=== PATIENT | female | born 1940 | race Caucasian/White ===

== ENCOUNTER 2017-01-05 09:48 | Emergency (ER) | payer MEDICARE, MEDICAID ==
[~2017-01-05] VITALS: Ht 167.6 cm; Wt 77.1 kg
--- NOTE | 2017-01-05 10:14 | Emergency Room Report ---
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 Clinical Suspician of Infection? Mental Status: Sepsis Risk: Have you (or family members/close friends) recently traveled outside the [place]? If Yes, where/when: Have you had exposure to infectious disease within the past month? TB? Other? Specify: Source patient, RN notes reviewed Exam Limitations no limitations Comment Pt is a 77 yo WF sent to the hospital today for a stress test. She has had a Pacemaker for the past 11 years and has been told she has a history of CHF. She has been having some Chest pain and sometimes breaks out with a sweat with the pain. She has a small amount of pain now bt is not diaphoretic. Her BP when she arrived for her stress test was 220 systolic and she was given her regular meds, Lisinopril 5 mg po, Carvedilol 12.5 mg po and Diltiazem ER 120 mg po in the Stress lab and on arrival in the ED her BP is still 204/89.. She is also a diabetic Cardiac Chest Pain Chest pain indicative of cardiac No Timing/Duration this morning ALLERGIES Coded Allergies: Penicillins (03/10/15) Sulfa (Sulfonamide Antibiotics) (03/10/15) codeine (03/10/15) ibuprofen (03/10/15) morphine (03/10/15) propoxyphene (03/10/15) Home Medications Active Scripts Albuterol Sulfate (Proair Hfa) 2 PUFFS IH QID PRN BREATHING #1 POW Ref 5 Prov: 04/03/14 Reported Medications Carvedilol (Carvedilol 6.25MG) 6.25 MG PO BID DILTIAZEM HCL (Diltiazem 24HR ER) 240 MG PO DAILY Lovastatin 40 MG PO QHS Omeprazole (Prilosec 20MG) 20 MG PO DAILY LISINOPRIL (Lisinopril) 20 MG PO DAILY Cholecalciferol (Vitamin D) 2,000 IUNITS PO DAILY BUDESONIDE/FORMOTEROL FUMARATE (Symbicort 80-4.5 Mcg Inhaler) 2 PUFFS IH BID #2 INH Baclofen 10 MG PO BIDP PRN MUSCLE SPASM METFORMIN HCL (Metformin) 850 MG PO BID Nitroglycerin (Nitrolingual [place]) 0.4 MG SL PRN PRN CHEST PAIN Polyethylene Glycol (Miralax Powder 255 Gm Bottle) 17 GM PO DAILY Fluticasone Propionate (Flonase 50 Mcg Nasal [place]) 1 SPRAY NA BID PRN ALLERGIES Loratadine (Loratadine 10MG Tablet) 10 MG PO DAILY History Medical History General CAD? Yes Angina: Yes [place]: Yes Hypertension? Yes Hyperlipidemia? Yes CHF? Yes COPD? Yes Asthma? Yes Hernia? Yes CVA? No Seizures? Yes Diabetes? Yes Insulin Dependent: No Insulin Pump: No Home FSBS? Yes End Stage Renal Disease? No UTI? No Stones? Yes GB Disease: Yes Nephritic Syndrome? No Asplenia? No Hepatitis? No Sickle Cell Disease? No Cataracts? Yes Glaucoma? No MRSA? No TB? No Cancer? No Immunization Hx DT/Tetanus Unknown Flu [id number] Flu Season Pneumonia Received In Past Surgical Hx Previous Surgery?Y GALLBLADDER HYSTERECTOMY COLON RESECTION HEMORRHOIDECTOMY L.BREAST BIOPSY R. ARM SURGERY A CHILD PACEMAKER INSERTION HERNIA REPAIR CATARACT REMOVAL BILATERA Family History Family Hx Diabetes Yes CAD No Hypertension Yes Hyperlipidemia No Cancer Yes TB No Social History Smoking Hx Packs/day N/A Alcohol Alcohol: No Review of Systems All Other Systems Reviewed and Negative Constitutional see HPI Cardiovascular see HPI Physical Exam Vital Signs Vital Signs Date Time Temp Pulse Resp B/P Pulse O2 O2 Flow FiO2 Ox Delivery Rate 01/05 1141 20 01/05 1135 71 20 185/90 93 01/05 1056 20 01/05 1025 71 20 188/88 94 01/05 0955 98.2 75 18 204/89 93 General Appearance normal appearance, WD/WN, no apparent distress Respiratory Status No: respiratory distress. Lung Sounds bilateral: normal breath sounds. Cardiovascular normal exam, regular rate/rhythm Neurologic alert, cnmt II-XII nml as tested, normal exam, no motor/sensory deficits Medical Decision Making LABS/Meds/Orders Pt receiving controlled substance in ED? No Results/Orders Laboratory Tests 01/05/17 1012: Sodium 137, Potassium 4.9, Chloride 102, Carbon Dioxide 31, BUN 20 H, Creatinine 1.1 H, Estimated Creat Clear 51, Estimated GFR (MDRD) 48 L, Glucose 144 H, Calcium 9.4, Total Bilirubin 0.4, AST 52 H, ALT 38, Alkaline Phosphatase 92, Creatine Kinase 80, CK-MB (CK-2) Rel Index 1.3, CK and CKMB Interp 1.0, Troponin I < 0.02, Total Protein 7.3, Albumin 3.7, Globulin 3.6 H, Albumin/Globulin Ratio 1.0 L, WBC 7.1, RBC 4.61, Hgb 13.1, Hct 41.2, MCV 89.4, RDW 12.1, Plt Count 233, MPV 8.2, Gran % 60.8, Gran # 4.3, Lymphocytes % 26.4, Monocytes % 5.6, Eosinophils % 5.8, Basophils % 1.4, Lymphocytes # 1.9, Monocytes # 0.4, Eosinophils # 0.4, Basophils # 0.1, PUBS MCHC 31.7 L, MCH 28.4 Current Medication Orders Sig/Sandro Start time Last Medication Dose Route Stop Time Status Admin Nitroglycerin 0 .STK-MED ONE 01/05 1048 DC SL Aspirin 0 .STK-MED ONE 01/05 1022 DCr .ROUTE Aspirin 324 MG ONCE ONE 01/05 1015 DCr 01/05 PO 01/05 1016 1023 Nitroglycerin 0.4 MG [id number] PRN 01/05 1015 AC 01/05 SL 1141 Sodium Chloride 10 ML PRN PRN 01/05 1000 AC IV 01/06 1000 Orders Procedure Date/time Status ELECTROCARDIOGRAM REQUEST 01/05 1002 Active IV SALINE LOCK 01/05 1002 Active CBC WITH AUTO DIFF 01/05 1002 Complete CARDIAC ENZYMES 01/05 1002 Complete CHEM 12 PROFILE 01/05 1002 Complete Departure Departure Time of Disposition 1215 Disposition DC Home or Self Care(routine) Clinical Impression Primary Impression: Accelerated hypertension Condition STABLE Referrals [facility] Patient Instructions DI for Malignant Hypertension, High Blood Pressure, Idiopathic Pulmonary Arterial Hypertension, Malignant Hypertension Additional Instructions TAke meds as directed. We discussed with the Stress Lab and they will do her stress test now that ZV=841/79 Discharge Counseling Counseled pt/family regarding diagnosis, test results, medications/RX, follow up needs ED Critical Care Critical Care No If Critical Care minutes are documented, the time involved in the performance of seperately reportable procedures was not counted toward critical care time documented. I directly delivered medical care to this critically ill and/or injured patient. Timely evaluation and treatment was necessary to address the significant organ system(s) dysfunction present in this patient. at 1213
--- NOTE | 2017-01-05 10:14 | Emergency Room Report ---
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 Clinical Suspician of Infection? Mental Status: Sepsis Risk: Have you (or family members/close friends) recently traveled outside the [place]? If Yes, where/when: Have you had exposure to infectious disease within the past month? TB? Other? Specify: Source patient, RN notes reviewed Exam Limitations no limitations Comment Pt is a 77 yo WF sent to the hospital today for a stress test. She has had a Pacemaker for the past 11 years and has been told she has a history of CHF. She has been having some Chest pain and sometimes breaks out with a sweat with the pain. She has a small amount of pain now bt is not diaphoretic. Her BP when she arrived for her stress test was 220 systolic and she was given her regular meds, Lisinopril 5 mg po, Carvedilol 12.5 mg po and Diltiazem ER 120 mg po in the Stress lab and on arrival in the ED her BP is still 204/89.. She is also a diabetic Cardiac Chest Pain Chest pain indicative of cardiac No Timing/Duration this morning ALLERGIES Coded Allergies: Penicillins (03/10/15) Sulfa (Sulfonamide Antibiotics) (03/10/15) codeine (03/10/15) ibuprofen (03/10/15) morphine (03/10/15) propoxyphene (03/10/15) Home Medications Active Scripts Albuterol Sulfate (Proair Hfa) 2 PUFFS IH QID PRN BREATHING #1 POW Ref 5 Prov: 04/03/14 Reported Medications Carvedilol (Carvedilol 6.25MG) 6.25 MG PO BID DILTIAZEM HCL (Diltiazem 24HR ER) 240 MG PO DAILY Lovastatin 40 MG PO QHS Omeprazole (Prilosec 20MG) 20 MG PO DAILY LISINOPRIL (Lisinopril) 20 MG PO DAILY Cholecalciferol (Vitamin D) 2,000 IUNITS PO DAILY BUDESONIDE/FORMOTEROL FUMARATE (Symbicort 80-4.5 Mcg Inhaler) 2 PUFFS IH BID #2 INH Baclofen 10 MG PO BIDP PRN MUSCLE SPASM METFORMIN HCL (Metformin) 850 MG PO BID Nitroglycerin (Nitrolingual [place]) 0.4 MG SL PRN PRN CHEST PAIN Polyethylene Glycol (Miralax Powder 255 Gm Bottle) 17 GM PO DAILY Fluticasone Propionate (Flonase 50 Mcg Nasal [place]) 1 SPRAY NA BID PRN ALLERGIES Loratadine (Loratadine 10MG Tablet) 10 MG PO DAILY History Medical History General CAD? Yes Angina: Yes [place]: Yes Hypertension? Yes Hyperlipidemia? Yes CHF? Yes COPD? Yes Asthma? Yes Hernia? Yes CVA? No Seizures? Yes Diabetes? Yes Insulin Dependent: No Insulin Pump: No Home FSBS? Yes End Stage Renal Disease? No UTI? No Stones? Yes GB Disease: Yes Nephritic Syndrome? No Asplenia? No Hepatitis? No Sickle Cell Disease? No Cataracts? Yes Glaucoma? No MRSA? No TB? No Cancer? No Immunization Hx DT/Tetanus Unknown Flu [id number] Flu Season Pneumonia Received In Past Surgical Hx Previous Surgery?Y GALLBLADDER HYSTERECTOMY COLON RESECTION HEMORRHOIDECTOMY L.BREAST BIOPSY R. ARM SURGERY A CHILD PACEMAKER INSERTION HERNIA REPAIR CATARACT REMOVAL BILATERA Family History Family Hx Diabetes Yes CAD No Hypertension Yes Hyperlipidemia No Cancer Yes TB No Social History Smoking Hx Packs/day N/A Alcohol Alcohol: No Review of Systems All Other Systems Reviewed and Negative Constitutional see HPI Cardiovascular see HPI Physical Exam Vital Signs Vital Signs Date Time Temp Pulse Resp B/P Pulse O2 O2 Flow FiO2 Ox Delivery Rate 01/05 1141 20 01/05 1135 71 20 185/90 93 01/05 1056 20 01/05 1025 71 20 188/88 94 01/05 0955 98.2 75 18 204/89 93 General Appearance normal appearance, WD/WN, no apparent distress Respiratory Status No: respiratory distress. Lung Sounds bilateral: normal breath sounds. 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 No Results/Orders Laboratory Tests 01/05/17 1012: Sodium 137, Potassium 4.9, Chloride 102, Carbon Dioxide 31, BUN 20 H, Creatinine 1.1 H, Estimated Creat Clear 51, Estimated GFR (MDRD) 48 L, Glucose 144 H, Calcium 9.4, Total Bilirubin 0.4, AST 52 H, ALT 38, Alkaline Phosphatase 92, Creatine Kinase 80, CK-MB (CK-2) Rel Index 1.3, CK and CKMB Interp 1.0, Troponin I < 0.02, Total Protein 7.3, Albumin 3.7, Globulin 3.6 H, Albumin/Globulin Ratio 1.0 L, WBC 7.1, RBC 4.61, Hgb 13.1, Hct 41.2, MCV 89.4, RDW 12.1, Plt Count 233, MPV 8.2, Gran % 60.8, Gran # 4.3, Lymphocytes % 26.4, Monocytes % 5.6, Eosinophils % 5.8, Basophils % 1.4, Lymphocytes # 1.9, Monocytes # 0.4, Eosinophils # 0.4, Basophils # 0.1, PUBS MCHC 31.7 L, MCH 28.4 Current Medication Orders Sig/Sandro Start time Last Medication Dose Route Stop Time Status Admin Nitroglycerin 0 .STK-MED ONE 01/05 1048 DC SL Aspirin 0 .STK-MED ONE 01/05 1022 DCr .ROUTE Aspirin 324 MG ONCE ONE 01/05 1015 DCr 01/05 PO 01/05 1016 1023 Nitroglycerin 0.4 MG [id number] PRN 01/05 1015 AC 01/05 SL 1141 Sodium Chloride 10 ML PRN PRN 01/05 1000 AC IV 01/06 1000 Orders Procedure Date/time Status ELECTROCARDIOGRAM REQUEST 01/05 1002 Active IV SALINE LOCK 01/05 1002 Active CBC WITH AUTO DIFF 01/05 1002 Complete CARDIAC ENZYMES 01/05 1002 Complete CHEM 12 PROFILE 01/05 1002 Complete Departure Departure Time of Disposition 1215 Disposition DC Home or Self Care(routine) Clinical Impression Primary Impression: Accelerated hypertension Condition STABLE Referrals [facility] Patient Instructions DI for Malignant Hypertension, High Blood Pressure, Idiopathic Pulmonary Arterial Hypertension, Malignant Hypertension Additional Instructions TAke meds as directed. We discussed with the Stress Lab and they will do her stress test now that IJ=160/79 Discharge Counseling Counseled pt/family regarding diagnosis, test results, medications/RX, follow up needs ED Critical Care Critical Care No If Critical Care minutes are documented, the time involved in the performance of seperately reportable procedures was not counted toward critical care time documented. I directly delivered medical care to this critically ill and/or injured patient. Timely evaluation and treatment was necessary to address the significant organ system(s) dysfunction present in this patient. at 1210
[2017-01-05 10:22] LABS: HEMOGLOBIN 13.1 g/dL (12.2-16.2); LYMPH # 1.9 K/mm3 (0.7-4.5); LYMPH % 26.4 % (10-50.0)
--- NOTE | 2017-01-05 11:17 | RADIOLOGY REPORT PS360 ---
CHEST(2 VIEWS-NOT PORTABLE) Ordering physician: Steve Bourgeois MD Age: 76 years Female INDICATION: chest symptomsHYPERTENSIVE cardiovascular disease PROCEDURE: CHEST(2 VIEWS-NOT PORTABLE) FINDINGS: Previous chest film 09/25/2013 as comparison Lungs well expanded and clear with nothing definitely acute. No pneumothorax. No pleural effusion. Pacemaker overlies left chest with atrial and ventricular leads appearing stable position. Intact. Heart normal size. Normal pulmonary vascularity. Hilar and mediastinal structures appear satisfactory. Chest wall unremarkable. T-spine intact. IMPRESSION ----- Stable chest with nothing definitely acute. Lungs clear. av Pacemaker with heart normal size.
[2017-01-05 11:19] LABS: BUN 20 mg/dL (7-18)
[2017-01-05 11:21] LABS: GFR (ESTIMATED) 48 ML/MIN (59-)
[2017-01-05 13:25] VITALS: BP 147/79
== END 2017-01-05 13:26 | disposition home or self-care (01) ==
LOC: ER 09:48
PROVIDERS: General Practice
DX: I11.0 Hypertensive heart disease with heart failure (principal); I25.10 Atherosclerotic heart disease of native coronary artery without angina pectoris; E78.5 Hyperlipidemia, unspecified; I50.9 Heart failure, unspecified; J44.9 Chronic obstructive pulmonary disease, unspecified; E11.9 Type 2 diabetes mellitus without complications; Z95.0 Presence of cardiac pacemaker; I25.2 Old myocardial infarction; Z79.84 Long term (current) use of oral hypoglycemic drugs; Z79.51 Long term (current) use of inhaled steroids; Z79.899 Other long term (current) drug therapy

== ENCOUNTER → 2017-01-05 | Outpatient (CLI) | payer MEDICARE, MEDICAID ==
[~2017-01-05] MED LIST: ASPIRIN 81MG TA81 MG PO; ASPIRIN E.C.81 MG PO; BACLOFEN10 MG PO; CARVEDILOL6.25 MG PO; CIPRO 500MG TA500 MG PO; DILTIAZEM CD 2240 MG PO; FLONASE 50 MCG16 GM; FLUTICASON0.05 MG/Ac NS; HYOSCYAMINE0.125 M4 SL; LEVAQUIN500 MG PO; LISINOPRIL 20MG20 MG PO; LORATADINE 10MG10 M1 PO; LORTAB 5/500 501 TAB PO; LOVASTATIN20 MG PO; LOVASTATIN40 MG PO; METFORMIN500 MG PO; METFORMIN850 MG PO; MIRALAX PO255 GM/BOT PO; NITROLINGU0.4 MG/ACT SL; PHENAZOPYRIDIN100 MG; PRILOSEC20 MG PO; PROAIR HFA0.09 MG/AC IH; PROTONIX 40MG T40 MG PO; SYMBICORT1 AER IH; TOVIAZ4 MG PO; VITAMIN D2000 I1 PO
--- NOTE | 2017-01-06 15:48 | RADIOLOGY REPORT PS360 ---
History and Indications: Coronary artery disease, history of [place], hypertension, diabetes, family history, chest pain and shortness of breath Procedure: Patient received a 0.4 mg of Lexiscan, resting heart rate was 71 bpm, resting blood pressure 181/87, with Lexiscan maximum heart rate achieved was 92 bpm is less than 85% of the maximum predicted heart rate and a blood pressure was 167/76. The scan patient complained of shortness of breath and discomfort. Electrocardiogram: Resting electrocardiogram showed sinus rhythm abnormal P wave nonspecific ST-T changes, with Lexiscan there is less than 1.[address] segment depression noted from the baseline EKG. The EKG portion of the Lexiscan is nondiagnostic. Cardiac stress and resting SPECT images: Cardiac stress and rest SPECT images were obtained using technetium 99 Myoview 10.3 mCi at rest and 30.2 mCi at stress, gated SPECT further analysis of segmental wall motion and calculation of the ejection fraction also done. Cardiac stress and rest images show mild fixed defect in the anterior wall with normal contractility in the gated SPECT is likely secondary to soft tissue attenuation, no reversible ischemia seen. Computer derived ejection fraction is over 65% with no obvious regional wall motion abnormality, right ventricle is normal size and contractility. Conclusion: 1. The EKG portion of the Lexiscan Myoview is nondiagnostic. 2. No obvious scintigraphic evidence of reversible ischemia seen, either derived ejection fraction is over 65% with no obvious regional wall motion abnormality, right ventricle is normal size and contractility.
== END ==
LOC: RAD 07:19
DX: R06.09 Other forms of dyspnea (principal); R55 Syncope and collapse; I10 Essential (primary) hypertension
CPT/HCPCS: A9502; J2785